=== PATIENT | female | born 2000 | race Two or more races ===

== ENCOUNTER 2022-10-29 20:15 | Emergency (ER) | payer OTHER ==
[~2022-10-29] VITALS: Ht 157.5 cm; Wt 57.6 kg
[2022-10-29] MEDS ORDERED: PEPCID AC20 MG PO (23:12)
[2022-10-29] MEDS ORDERED: ZOFRAN8 MG PO (23:12)
== END 2022-10-29 23:42 | disposition home or self-care (01) ==
LOC: ER 20:15
DX: R11.2 Nausea with vomiting, unspecified (principal); R11.10 Vomiting, unspecified

== ENCOUNTER 2022-11-11 19:19 | Emergency (ER) | payer OTHER ==
[~2022-11-11] VITALS: Ht 152.4 cm; Wt 56.7 kg
[~2022-11-11 19:19] MED LIST: PEPCID AC20 MG PO; ZOFRAN8 MG PO
== END 2022-11-11 23:00 | disposition home or self-care (01) ==
LOC: ER 19:19
DX: K29.70 Gastritis, unspecified, without bleeding (principal); R53.81 Other malaise; Z20.822 Contact with and (suspected) exposure to COVID-19; Z88.6 Allergy status to analgesic agent

== ENCOUNTER 2022-12-22 12:33 | Emergency (ER) | payer OTHER ==
[~2022-12-22] VITALS: Ht 157.5 cm; Wt 54.9 kg
== END 2022-12-22 18:16 | disposition home or self-care (01) ==
LOC: ER 12:33
PROVIDERS: General Practice
DX: R11.2 Nausea with vomiting, unspecified (principal); K29.70 Gastritis, unspecified, without bleeding; Z88.6 Allergy status to analgesic agent
CPT/HCPCS: 36415; 76830; 96365; 99284; J2405; J3490; J7030

== ENCOUNTER 2024-06-26 19:59 | Emergency (ER) | payer OTHER ==
[~2024-06-26] VITALS: Ht 157.5 cm; Wt 60.3 kg
[2024-06-26] MEDS ORDERED: ONDANSETRON HCL 2 MG/ML VIAL IV ONE (21:15)
[2024-06-26] MEDS ORDERED: FAMOtidine 10 MG/ML (4ML VIAL) IV PUSH ONE (21:15)
[2024-06-26 21:32] LABS: HEMATOCRIT 34.1 % (36.0-45.00); HEMOGLOBIN 11.9 g/dL (12.0-15.00); MEAN CELL VOLUME 83.7 fL (80.00-100.00); MEAN CORPUSCULAR HEMOGLOBIN 29.2 pg (27.00-32.0); MEAN CORPUSCULAR HGB CONC 34.9 g/dl (32.0-36.0); PLATELET COUNT 221 K/uL (150-450); RED BLOOD COUNT 4.07 M/uL (4.00-6.00); RED CELL DISTRIBUTION WIDTH 14.4 % (11.5-14.5)
[2024-06-26] MEDS ORDERED: PEPCID AC20 MG PO (22:23)
[2024-06-26] MEDS ORDERED: ZOFRAN8 MG PO (22:23)
== END 2024-06-26 22:27 | disposition home or self-care (01) ==
LOC: ER 20:02
PROVIDERS: General Practice
DX: K29.70 Gastritis, unspecified, without bleeding (principal); Z20.822 Contact with and (suspected) exposure to COVID-19

== ENCOUNTER 2024-12-23 14:28 | Emergency (ER) | payer OTHER ==
[~2024-12-23] VITALS: Ht 157.5 cm; Wt 59.0 kg
[2024-12-23] MEDS ORDERED: FAMOTIDINE/PF 20 MG/2 ML VIAL IV ONE (17:30)
[2024-12-23] MEDS ORDERED: ONDANSETRON HCL 2 MG/ML VIAL IV ONE (17:30)
[2024-12-23] MEDS ORDERED: ACETAMINOPHEN 500 MG GEL..CAP PO ONE (17:30)
[2024-12-23 17:58] LABS: BASO % 0.6 % (0.1-1.2); EOS # 0.07 (0.04-0.54); EOS % 1.3 % (0.7-7.0); LYMPH # 3.09 (1.18-3.74); LYMPH % 58.6 % (19.3-53.1); MEAN PLATELET VOLUME 10.10 fl (9.4-12.4); MONO # 0.33 (0.24-0.82); MONO % 6.3 % (4.7-12.5); NEUT # 1.74 (1.56-6.13); NEUT % 33.0 % (34.0-71.1); RED CELL DISTRIBUTION WIDTH 12.6 % (11.6-14.4)
[2024-12-23 18:28] LABS: ALT/SGPT 19.0 U/L (12-78); AST/SGOT 13.0 U/L (15-37); BILIRUBIN TOTAL 0.46 mg/dL (0.3-1.2); BUN CREA RATIO 13.0 (7.0-25.0); CREATININE SERUM 0.75 mg/dL (0.55-1.02); GFR 95.76; GLOBULINA 3.1 G/DL (2.4-3.5); GLUCOSE FASTING 87.0 mg/dL (65-100); OSMOLALITY SERUM 285.0 MOSM/KG (275-295)
[2024-12-23 20:11] LABS: COVID-19 AG NEGATIVE (NEGATIVE)
[2024-12-23] MEDS ORDERED: KETOROLAC TROMETHAMINE 30 MG VIAL IM ONE (21:00)
[2024-12-23] MEDS ORDERED: SUMATRIPTAN SUCCINATE 6 MG/0.5 ML VIAL SUBCUTANEO ONE (22:00)
[2024-12-23] MEDS ORDERED: METOCLOPRAMIDE HCL 5 MG/ML VIAL IM ONE (22:45)
[2024-12-23] MEDS ORDERED: BUTALB-ACETAMI1 EAC2 PO (23:17)
== END 2024-12-23 23:27 ==
LOC: ER 14:28
PROVIDERS: Preventive Medicine Public Health & General Preventive Medicine
DX: R51.9 Headache, unspecified (principal); R53.81 Other malaise; Z20.822 Contact with and (suspected) exposure to COVID-19